=== PATIENT | male | born 1995 | race American Indian/Alaskan Native ===

== ENCOUNTER 2017-11-11 11:54 | Emergency (ER) | payer BC ==
[2017-11-11] MEDS ORDERED: MOTRIN PO ONE (13:35)
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
[2017-11-11 15:07] VITALS: BP 126/74
== END 2017-11-11 15:06 | disposition home or self-care (01) ==
LOC: ED 11:54
DX: S13.4XXA Sprain of ligaments of cervical spine, initial encounter (principal); S39.012A Strain of muscle, fascia and tendon of lower back, initial encounter; R51 Headache; F17.200 Nicotine dependence, unspecified, uncomplicated; V49.49XA Driver injured in collision with other motor vehicles in traffic accident, initial encounter; Y93.89 Activity, other specified; Y99.8 Other external cause status; Y92.89 Other specified places as the place of occurrence of the external cause
CPT/HCPCS: 70450; 72100; 72125